=== PATIENT | male | born 1980 | race Caucasian/White ===

== ENCOUNTER 2017-04-06 17:33 | Inpatient (IN) | payer MEDICAID ==
[2017-04-06] MEDS ORDERED: NS 1,000 ML IV ONE ×2 (18:04→18:10)
[2017-04-06] MEDS ORDERED: IPRATROPIUM/ALBUTEROL 3 ML DEYVIAL IH ONE (18:10)
[2017-04-06] MEDS ORDERED: ONDANSETRON 4 MG/2 ML VIAL IVP ONE (18:10)
[2017-04-06] MEDS ORDERED: PROMETHAZINE HCL 25 MG/ML INJ IVP ONE (18:10)
--- NOTE | 2017-04-06 18:12 | EDPHY ---
General - History Smoking Status: Never smoked Narrative: CHIEF COMPLAINT: Fever, cough, chest pain, vomiting, diarrhea HISTORY OF PRESENT ILLNESS: Patient presents with complaints of fever, cough, right-sided painful cough, nausea, vomiting, diarrhea. Symptoms started on Wednesday. They have been persistent and worsening. No neck pain or stiffness. No headache. No abdominal pain but he does have multiple episodes of vomiting and diarrhea per day. He has no rashes or lesions. He also has body aches, joint pains, malaise. Occasional sore throat. He has attempted [id number] medications and his prescribed Percocet with no improvement. Currently resides at the [facility] in the [facility]. Patient went to urgent care last night with no formal diagnosis. No other associated complaints or modifying factors. REVIEW OF SYSTEMS: Ten systems reviewed and are negative unless otherwise noted in the HPI PCP: Dr. Harrison SPECIALISTS: None PAST MEDICAL HISTORY: Hypertension, previous alcohol abuse PAST SURGICAL HISTORY: No recent surgery SOCIAL HISTORY: Daily smoker. Sober from alcohol for 5 months. No drug use. 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 No meningeal signs. Respiratory: Mild rhonchi and scattered wheezing. Right-sided consolidation. No retractions or distress. Cardiovascular: Tachycardic rate. Regular rhythm. No murmur. Gastrointestinal: Abdomen is soft and nontender. No tympany rigidity Back: non-tender, no bony abnormalities Neurological: A&O, nonfocal, normal gait Skin: Warm and dry, no rash no petechiae or purpura Extremities: Nontender, no pedal edema Psychiatric: Mood and affect normal DIFFERENTIAL DIAGNOSES: Including but not limited to influenza, bronchitis, pneumonia, viral syndrome, gastroenteritis MDM: 6:10 p.m. Flu-like symptoms since Wednesday. Vomiting and diarrhea with stated dehydration. He is tachycardic and febrile. He is not tachypneic or hypoxemic. He is not hypotensive. He does have a history examination that suggest influenza greater than pneumonia. I have ordered laboratory studies, 2 L IV fluid, nausea medicine, DuoNeb treatment and chest x-ray. He is in no acute distress and does not require supplemental oxygen at this time. 6:35 p.m. Initial evaluation the patient pointed more toward influenza as a likely etiology. At this time I have reviewed his chest x-ray which suggests right- sided middle lobe pneumonia. At this point I have ordered blood cultures and lactic acid. I will also notified Dr. Lance as he does not meet SIRS criteria with likely sepsis from pneumonia. 7:00 p.m. Patient does meet criteria for sepsis but not severe sepsis or septic shock. Levaquin has been ordered. He is receiving IV fluid resuscitation. He is not hypoxemic. He is in no acute distress. 7:30 p.m. Patient re-evaluated. Laboratory studies revealed leukocytosis and confirm pneumonia on chest x-ray. Lactic acid is negative. Levaquin infusing. 8:05 p.m. Patient has been admitted to Dr. montoya. He is admitted in stable condition. IV fluid infusing. Levaquin infusing. Heart rate is improving. He continues to complain of pain, he does have chronic pain from spinal stenosis. I have ordered IV morphine for him. No acute distress. SUPERVISION: Patient was evaluated and examined in conjunction with my secondary supervising physician as documented. We have both examined the patient. (René Sousa) Medical Decision Making: Independent physician evaluation I evaluated and participated in the management of the patient. I also evaluated the patient independently. My co-signature indicates that I have reviewed this chart and I agree with the findings and plan of care as documented. My personal H&P findings include: The patient presents to the ED with fever, cough, congestion and right posterior chest pain. His symptoms began on Wednesday. The patient is a recovering alcoholic and has been sober for 5 months. He denies significant past medical history aside from hypertension. The patient reports associated symptoms of generalized malaise and fatigue. Physical exam General Appearance: Alert, appears fatigued Eyes: Pupils equal and round no pallor or injection ENT, Mouth: Mucous membranes moist Respiratory: Rhonchorous breath sounds right lung base Cardiovascular: Tachycardic Gastrointestinal: Abdomen is soft and nontender, no masses, bowel sounds normal Neurological: A&O, normal motor function, normal sensory exam, normal cranial nerves Skin: Warm and dry, no rashes Musculoskeletal: Neck is supple nontender Extremities: symmetrical, full range of motion ED course: The patient presents to the ED with fever, cough and congestion. The patient is noted to have leukocytosis and tachycardia. His chest x-ray shows a dense right lower lobe pneumonia. The patient had blood cultures x2 obtained. The patient does have SIRS criteria and sepsis. He does not have severe sepsis or septic shock. The patient received IV fluid rehydration. The patient is started on IV Levaquin. Consultation is made with the hospitalist service. He will be admitted by Dr. Cassidy Montoya this evening. (Tan Lance) - Diagnostics Imaging Results: Imaging Impressions Chest X-Ray 04/06/17 18:10 Impression: Dense right middle and lower lobe consolidation consistent with pneumonia. Radiographic follow up is recommended to resolution. - Objective Vital Signs: Initial Vital Signs Temperature (C) 102.2 F H 04/06/17 17:38 Heart Rate 126 H 04/06/17 17:38 Respiratory Rate 20 04/06/17 17:38 Blood Pressure 106/68 04/06/17 17:38 O2 Sat (%) 93 04/06/17 17:38 O2 Delivery Mode Nasal Cannula O2 (L/minute) 2 Allergies/Adverse Reactions: No Known Allergies Allergy (Unverified 04/06/17 17:37) Home Medications: Medication Instructions Recorded Ibuprofen [Motrin (*)] 800 mg PO TID 04/06/17 Lisinopril/Hydrochlorothiazide 1 each PO DAILY 04/06/17 [Zestoretic 20-12.5 mg Tablet] oxyCODONE/APAP 5/325 [Percocet 1 tab PO TID 04/06/17 5/325 (*)] Laboratory Results: Laboratory Results 04/06/17 18:10 04/06/17 18:10 04/06/17 04/06/17 04/06/17 19:00 18:10 18:10 WBC RBC Hgb Hct MCV MCH MCHC RDW Plt Count MPV Neut % (Auto) Lymph % (Auto) [place] % (Auto) Eos % (Auto) Baso % (Auto) Nucleat RBC Rel Count Absolute Neuts (auto) Absolute Lymphs (auto) Absolute Monos (auto) Absolute Eos (auto) Absolute Basos (auto) Absolute Nucleated RBC Immature Gran % Seg Neutrophils % Band Neutrophils % Immature Gran # Absolute Seg Neuts Absolute Band Neuts RBC/WBC/PLT Morphology Platelet Estimate PT INR APTT VBG Lactic Acid 1.5 mmol/L mmol/L (0.7-2.1) Sodium Potassium Chloride Carbon Dioxide Anion Gap BUN Creatinine Estimated GFR Glucose Calcium Total Bilirubin 1.0 mg/dL mg/dL (0.1-1.4) Conjugated Bilirubin Unconjugated Bilirubin AST ALT Alkaline Phosphatase Total Protein Albumin Lipase Procalcitonin Pending Nasal Influenza A PCR Nasal Influenza B PCR 04/06/17 04/06/17 04/06/17 18:10 18:10 18:10 WBC RBC Hgb Hct MCV MCH MCHC RDW Plt Count MPV Neut % (Auto) Lymph % (Auto) [place] % (Auto) Eos % (Auto) Baso % (Auto) Nucleat RBC Rel Count Absolute Neuts (auto) Absolute Lymphs (auto) Absolute Monos (auto) Absolute Eos (auto) Absolute Basos (auto) Absolute Nucleated RBC Immature Gran % Seg Neutrophils % Band Neutrophils % Immature Gran # Absolute Seg Neuts Absolute Band Neuts RBC/WBC/PLT Morphology Platelet Estimate PT 15.4 SEC H SEC (12.0-15.0) INR 1.20 H (0.83-1.16) APTT 40.9 SEC H SEC (23.0-38.0) VBG Lactic Acid Sodium 133 mEq/L L mEq/L (135-145) Potassium 4.1 mEq/L mEq/L (3.5-5.2) Chloride 96 mEq/L L mEq/L (97-110) Carbon Dioxide 21 mEq/l L mEq/l (22-31) Anion Gap 16 mEq/L mEq/L (8-16) BUN 37 mg/dL H mg/dL (7-23) Creatinine 1.1 mg/dL mg/dL (0.7-1.3) Estimated GFR > 60 Glucose 125 mg/dL H mg/dL (70-100) Calcium 9.1 mg/dL mg/dL (8.5-10.4) Total Bilirubin 1.0 mg/dL mg/dL (0.1-1.4) Conjugated Bilirubin 0.5 mg/dL mg/dL (0.0-0.5) Unconjugated Bilirubin 0.5 mg/dL mg/dL (0.0-1.1) AST 73 IU/L H IU/L (17-59) ALT 110 IU/L H IU/L (21-72) Alkaline Phosphatase 244 IU/L H IU/L (38-126) Total Protein 5.7 g/dL L g/dL (6.3-8.2) Albumin 3.3 g/dL L g/dL (3.5-5.0) Lipase < 10 IU/L L IU/L (23-300) Procalcitonin Nasal Influenza A PCR NEGATIVE FOR FLU A (NEGATIVE) Nasal Influenza B PCR NEGATIVE FOR FLU B (NEGATIVE) 04/06/17 18:10 WBC 17.51 10^3/uL H 10^3/uL (3.80-9.50) RBC 4.22 10^6/uL L 10^6/uL (4.40-6.38) Hgb 13.4 g/dL L g/dL (13.7-17.5) Hct 37.4 % L % (40.0-51.0) MCV 88.6 fL fL (81.5-99.8) MCH 31.8 pg pg (27.9-34.1) MCHC 35.8 g/dL g/dL (32.4-36.7) RDW 13.0 % % (11.5-15.2) Plt Count 187 10^3/uL 10^3/uL (150-400) MPV 9.6 fL fL (8.7-11.7) Neut % (Auto) Not Reported Lymph % (Auto) Not Reported [place] % (Auto) Not Reported Eos % (Auto) Not Reported Baso % (Auto) Not Reported Nucleat RBC Rel Count 0.0 % % (0.0-0.2) Absolute Neuts (auto) Not Reported Absolute Lymphs (auto) Not Reported Absolute Monos (auto) Not Reported Absolute Eos (auto) Not Reported Absolute Basos (auto) Not Reported Absolute Nucleated RBC 0.00 10^3/uL 10^3/uL (0-0.01) Immature Gran % Not Reported Seg Neutrophils % 81 % % Band Neutrophils % 19 % % Immature Gran # Not Reported Absolute Seg Neuts 14.18 10^/uL H 10^/uL (1.70-6.50) Absolute Band Neuts 3.33 10^3/uL H 10^3/uL (0.00-0.70) RBC/WBC/PLT Morphology NORMAL (NORMAL) Platelet Estimate ADEQUATE (ADEQ) PT INR APTT VBG Lactic Acid Sodium Potassium Chloride Carbon Dioxide Anion Gap BUN Creatinine Estimated GFR Glucose Calcium Total Bilirubin Conjugated Bilirubin Unconjugated Bilirubin AST ALT Alkaline Phosphatase Total Protein Albumin Lipase Procalcitonin Nasal Influenza A PCR Nasal Influenza B PCR Medications Given: Discontinued Medications Albuterol/Ipratropium (Duoneb) 3 ml IH EDNOW ONE Stop: 04/06/17 18:11 Last Admin: 04/06/17 18:33 Dose: 3 ml Sodium Chloride (Ns) 1,000 mls @ 0 mls/hr IV EDNOW ONE; Wide Open PRN Reason: Protocol Stop: 04/06/17 18:05 Last Admin: 04/06/17 18:31 Dose: 1,000 mls Sodium Chloride (Ns) 1,000 mls @ 0 mls/hr IV EDNOW ONE; Wide Open PRN Reason: Protocol Stop: 04/06/17 18:11 Last Admin: 04/06/17 18:32 Dose: 1,000 mls Levofloxacin/Dextrose (Levaquin 750 Mg (Premix)) 150 mls @ 100 mls/hr IV EDNOW ONE PRN Reason: Protocol Stop: 04/06/17 20:18 Last Admin: 04/06/17 19:31 Dose: 150 mls Ibuprofen (Motrin) 600 mg PO EDNOW ONE Stop: 04/06/17 18:14 Last Admin: 04/06/17 18:32 Dose: 600 mg Ondansetron HCl (Zofran) 4 mg IVP EDNOW ONE Stop: 04/06/17 18:11 Last Admin: 04/06/17 18:32 Dose: 4 mg Promethazine HCl (Phenergan) 12.5 mg IVP ONCE ONE Stop: 04/06/17 18:11 Last Admin: 04/06/17 18:32 Dose: 12.5 mg Departure - Departure Disposition: [place] Inpatient Acute Clinical Impression: Pneumonia Qualifiers: Pneumonia type: due to unspecified organism Laterality: right Lung location: lower lobe of lung Qualified Code(s): J18.1 - Lobar pneumonia, unspecified organism Sepsis Qualifiers: Sepsis type: sepsis due to unspecified organism Qualified Code(s): A41.9 - Sepsis, unspecified organism Condition: Fair Referrals: MARIO HARRISON [Other] - As per Instructions
[2017-04-06] MEDS ORDERED: IBUPROFEN 600 MG TAB PO ONE (18:13)
[2017-04-06 18:26] LABS: PLATELET COUNT 187 10^3/uL (150-400)
[2017-04-06 20:28] LABS: INR 1.2 (0.83-1.16); PROTIME(PATIENT) 15.4 SEC (12.0-15.0)
[2017-04-06] MEDS ORDERED: PROMETHAZINE HCL 25 MG/ML INJ IVP PRN (21:46)
[2017-04-06] MEDS ORDERED: ONDANSETRON 4 MG/2 ML VIAL IVP PRN (21:46)
[2017-04-06] MEDS ORDERED: ACETAMINOPHEN 325 MG TAB PO PRN (21:46)
[2017-04-06] MEDS ORDERED: oxyCODONE IR 5 MG TAB PO PRN (21:46)
[2017-04-06] MEDS: OXYCODONE/APAP 5/325 TAB PO SCH (22:04)
[2017-04-06] MEDS: NS 1,000 ML IV SCH (22:15)
--- NOTE | 2017-04-06 22:24 | GHP ---
[f rep st] HISTORY AND PHYSICAL DATE OF ADMISSION: 04/06/2017 CHIEF COMPLAINT: Pleuritic chest pain. HISTORY: The patient is a 36-year-old male, who has been having right-sided chest pain for the last 4 days. It is pleuritic and severe with deep inspiration. He looks extraordinarily uncomfortable. He has also developed fever for the last 2 days and a productive cough. He has been having nausea, v omiting, and diarrhea. He feels achy and myalgias all over. He lives at the [facility] as he is a recoveri ng alcoholic and feels he likely acquired respiratory infection there. He has been sober from [employer] for the last 5-1/2 months. PAST MEDICAL HISTORY: 1. Hypertension. 2. Previous alcoholism. 3. Spinal stenosis on chronic narcotics, 3 Percocet per day. MEDICATIONS: Please see computer record full detailed list. ALLERGIES: No known drug allergies. SOCIAL HISTORY: He smokes. He has been sober for 5-1/2 months. He lives at the [facility]. 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 REVIEW OF SYSTEMS: Complete review of systems obtained. Review of systems negative regarding consti tutional, HEENT, GI, pulmonary, cardiovascular, , hematology, skin, musculoskeletal, endocrine, and psych, except for positives and negatives as in HPI. FAMILY HISTORY: Reviewed, noncontributory to presenting complaint. PHYSICAL EXAMINATION: GENERAL: Well-developed, well-nourished male, in no acute distress. VITAL SI GNS: Temperature 38.1, pulse 115, blood pressure 108/63, saturating 93% on 2 L. EYE: Normal conjun ctivae. Pupils react to light. ENT: Normal ears, nose. Hearing intact. Normal lips and teeth. O ropharynx moist. NECK: Trachea midline. No thyromegaly. CHEST: Normal effort. LUNGS: Right bas ilar rales. No wheeze or rhonchi. CARDIOVASCULAR: Regular rhythm. No murmur. No extremity edema. ABDOMEN: Soft, nontender. No hepatosplenomegaly. SKIN: Warm, dry, intact. No rash. MUSCULOSKE LETAL: No cyanosis or clubbing. Strength 5/5 upper and lower extremities. NEUROLOGIC: Cranial ner ves intact. Normal sensation to light touch. PSYCH: Alert AND oriented x3. Normal affect. Normal judgment and insight. Normal memory. LABORATORY DATA: White count 17.5, hematocrit 37.4, platelets 187. Sodium 133, potassium 4.1, chlor sae 96, bicarb 21, BUN 37, creatinine 1.1, glucose 125, AST 73, ALT 110, alkaline phosphatase 244, al bumin 3.3, procalcitonin 5.88. Influenza negative. Lactate 1.5. INR is 1.2. Chest x-ray, reviewed by me. My personal interpretation is dense right middle lobe and right lower lobe consolidation. I have spoken with the emergency room provider René Sousa regarding emergency room course. They sta rted him on IV Levaquin. ASSESSMENT/PLAN: 1. Pneumonia. Patient appears quite toxic and uncomfortable at this time. We will continue IV Leva murphy and anticipated prolonged hospitalization. His chest x-ray is quite significant. 2. Sepsis as evidenced by fever, tachycardia, and leukocytosis. We will continue IV fluid hydration . 3. Increased liver function tests. This is likely due to his sepsis. We will check an abdominal ul trasound and a viral hepatitis panel. 4. Spinal stenosis with continuous narcotic dependency. Continue scheduled Percocet. 5. Hypertension. We will hold his usual lisinopril and hydrochlorothiazide while monitoring blood p ressures closely. 6. Tobacco dependence. Continue patch. CODE STATUS: Full. ADMISSION STATUS: Will admit to inpatient as given his severity of illness on presentation. Anticip ate greater than 2 midnights will be required. DEEP VENOUS THROMBOSIS PROPHYLAXIS: He is moderate risk. Will place on subcu Lovenox. /[id number]/MODL
[2017-04-06] MEDS: BENZONATATE 100 MG CAP PO PRN (22:32)
[2017-04-06] MEDS: GUAIFENESIN/DM 10 ML UDCUP PO PRN (22:33)
[2017-04-06] MEDS: HYDROmorphONE/DILAUDID 1 MG/ML INJ IVP PRN (23:40)
[2017-04-07] MEDS: HYDROmorphONE/DILAUDID 1 MG/ML INJ IVP PRN ×3 (04:44→18:06)
[2017-04-07] MEDS: GUAIFENESIN/DM 10 ML UDCUP PO PRN ×2 (04:46→11:56)
[2017-04-07 05:19] LABS: PLATELET COUNT 181 10^3/uL (150-400)
[2017-04-07] MEDS: BENZONATATE 100 MG CAP PO PRN (06:11)
[2017-04-07 06:25] LABS: HEPATITIS B SURFACE ANTIGEN NEGATIVE (NEGATIVE)
[2017-04-07 06:31] LABS: HEPATITIS A ANTIBODY IGM (BCH) NEGATIVE (NEGATIVE); HEPATITIS B CORE AB IGM NEGATIVE (NEGATIVE)
[2017-04-07 06:42] LABS: HEPATITIS C ANTIBODY TOTAL NEGATIVE (NEGATIVE); HIV TYPE 1 AND 2 NEGATIVE (NEGATIVE)
--- NOTE | 2017-04-07 08:19 | HOSPPROG ---
Hospitalist Progress Note Assessment/Plan: DIAGNOSES: -pneumococcal pneumonia and bacteremia -acute sepsis -liver injury with elevated transaminases due to above -prerenal azotemia -acute diffuse pain but primarily pleuritic chest pain, with chronic back pain on chronic prescribed narcotics average 3 Percocet tablets daily at home -acute hypoxemia At this point there are still some mild some findings of sepsis, and he has quite a bit of pleuritic pain as well as diffuse myalgias and arthralgias. He remains fairly toxic, extremely weak, short of breath No appetite at all quite a bit of nausea and unable to eat or drink PLANS: -continue current antibiotics -continue IV fluid resuscitation -will add scheduled antiemetics, scheduled antitussives, and have added prednisone as a anti-inflammatory for his chest pain and also as an antiemetic -encouraged him to be up in chair as much as possible SUBJECTIVE: Still feels extremely sick, still with quite a bit of uncontrolled pain both his pleuritic chest pain as well as diffuse myalgias and arthralgias Still short of breath Despite multiple antiemetic doses still fairly nauseous, no appetite, not eating or drinking anything, no abdominal pain OBJECTIVE Vitals reviewed: Remains mildly hypotensive despite being off his usual antihypertensive medicines, pulse remains in 90s, current temperature is normal Exam: alert oriented looks quite ill, weak, fatigued skin warm dry color ok resps looks very uncomfortable due to his pleuritic pain lungs loud rhonchi and rales right lower lobe heart regular abd soft nondistended nontender, bowel sounds present limbs warm, no edema iv site ok Laboratory data: Some mild decrease in liver transaminases White blood cell count still elevated at 14,000, some mild anemia normocytic has developed Microbiology data: Strep pneumococcus growing from all this blood culture bottles No identified organisms on his respiratory pathogen panel in his flu swab was negative Objective: Vital Signs Temp Pulse Resp BP Pulse Ox 36.9 C 91 18 92/56 L 96 04/07/17 04:00 04/07/17 04:00 04/07/17 04:00 04/07/17 04:00 04/07/17 04:00 Microbiology 04/07/17 05:05 - Final Sputum, Expectorated Sputum Culture - Final 04/06/17 22:35 Respiratory Panel (PCR) - Final Nasal, Sinus - Swab No Organism Detected Laboratory Results 04/07/17 04:37 04/07/17 04:37 04/06/17 04/07/17 04/08/17 06:59 06:59 06:59 Intake Total 2500 Output Total 600 Balance 1900 PT 15.4 SEC (12.0-15.0) H 04/06/17 18:10 INR 1.20 (0.83-1.16) H 04/06/17 18:10 - Time Spent With Patient Time Spent with Patient: greater than 35 minutes Time Spent with Patient: Greater than 35 minutes spent on this patients care, greater than 50% of time spent counseling, educating, and coordinating care regarding the above mentioned plan. ICD10 Worksheet Patient Problems: Problems Problem Status Onset Pneumonia Acute Sepsis Acute
[2017-04-07] MEDS: NS 1,000 ML IV SCH (09:04)
[2017-04-07] MEDS: ENOXAPARIN 40 MG/0.4 ML SYR SC SCH (09:05)
[2017-04-07] MEDS: IBUPROFEN 800 MG TAB PO SCH ×3 (09:05→21:24)
[2017-04-07] MEDS: OXYCODONE/APAP 5/325 TAB PO SCH ×3 (09:05→21:24)
[2017-04-07] MEDS: predniSONE 20 MG TAB PO SCH (09:05)
[2017-04-07] MEDS: NICOTINE 14 MG/24 HR PATCH TD SCH (09:05)
[2017-04-07] MEDS: ONDANSETRON 4 MG/2 ML VIAL IVP SCH ×4 (09:05→23:21)
--- NOTE | 2017-04-07 09:29 | ASMTCASEMG ---
Living Arrangements What is your living Answers: Alone arrangement? Who do you live with? Type Of Residence What kind of residence do Answers: House you live in? Discharge Plan Comments Coordination Status Comments Notes: Pt is a 36 y/o man admitted for pneumonia. PT has been ordered and awaiting recommendations. Pt will most likely d/c independent when medically stable. CM available for d/c needs. Plan: Independent Date Signed: 04/07/2017 09:28 AM Electronically Signed By:LESLI Salcedo
[2017-04-07] MEDS ORDERED: PNEUMOCOCCAL 0.5ML VACCINE VIAL IM ONE (11:22)
[2017-04-07] MEDS: PROMETHAZINE HCL 25 MG/ML INJ IVP SCH ×3 (11:56→23:13)
--- NOTE | 2017-04-07 14:42 | PDMN ---
Medical Necessity Medical necessity: Pt meets IP criteria per MD; est los >2 mn for eval/tx of sepsis, pneumonia & N/V/D; pt severely ill, admit for further workup/monitoring , IV abx, IVFs, IV pain meds/antiemetics & therapies; hx htn, spinal stenosis & previous alcoholism; per H&P & order 04/06/17
[2017-04-07] MEDS: BENZONATATE 100 MG CAP PO SCH ×2 (16:06→21:25)
[2017-04-07] MEDS ORDERED: NALOXONE HCL 0.4 MG/ML INJ IVP PRN (18:21)
[2017-04-07] MEDS: traZODone 50 MG TAB PO SCH (21:25)
[2017-04-07] MEDS: MELATONIN 3 MG TAB PO SCH (21:25)
[2017-04-08] MEDS: ONDANSETRON 4 MG/2 ML VIAL IVP SCH ×6 (05:45→23:31)
[2017-04-08] MEDS: predniSONE 20 MG TAB PO SCH (09:05)
[2017-04-08] MEDS: BENZONATATE 100 MG CAP PO SCH ×3 (09:06→21:26)
[2017-04-08] MEDS: NICOTINE 14 MG/24 HR PATCH TD SCH (09:07)
[2017-04-08] MEDS: ENOXAPARIN 40 MG/0.4 ML SYR SC SCH (09:07)
[2017-04-08] MEDS: OXYCODONE/APAP 5/325 TAB PO SCH ×3 (09:08→21:26)
[2017-04-08] MEDS: PROMETHAZINE HCL 25 MG/ML INJ IVP SCH ×4 (09:08→17:53)
[2017-04-08] MEDS: IBUPROFEN 800 MG TAB PO SCH ×4 (09:08→21:26)
--- NOTE | 2017-04-08 12:39 | HOSPPROG ---
Hospitalist Progress Note Assessment/Plan: DIAGNOSES: -pneumococcal pneumonia and bacteremia, sensitivities still pending -acute sepsis, appears now to have resolved -liver injury with elevated transaminases due to above -prerenal azotemia -acute diffuse pain but primarily pleuritic chest pain, with history of chronic back pain on chronic prescribed narcotics (average 3 Percocet tablets daily at home) -acute hypoxemia At this point there are still some mild some findings of sepsis, and he has quite a bit of pleuritic pain as well as diffuse myalgias and arthralgias. He remains fairly toxic, extremely weak, short of breath No appetite at all quite a bit of nausea and unable to eat or drink PLANS: -continue current antibiotics -continue IV fluid resuscitation -continue scheduled antiemetics, scheduled antitussives, NSAID, as well as prednisone which we can probably stop in 1-2 days -with his concern about using narcotic medicines, I reviewed with him that given his degree of pain the use of narcotic here for a couple of days is very unlikely to lead to any kind of habit or other problems, as long as we can taper him off and sent him home without oral medicines. However as he is the only 1 who can feel the pain it is up to him to decide whether he can tolerate going without pain medicines and he should use what pain medicine he needs to get by and no more. We discussed this and I answered several questions he had around. -encouraged him to begin ambulation as much as possible today SUBJECTIVE: Slightly less pain and nausea but still needing medication for both new less short of breath and less cough, did get some sleep finally last night for the 1st time in 4 days No other new symptoms The patient is expressing concern about taking narcotics here worried about becoming addicted to narcotics OBJECTIVE Vitals reviewed: Afebrile, blood pressure pulse of normalized nicely Exam: alert oriented still looks fairly visibly ill and uncomfortable skin warm dry color ok resps not labored but still uncomfortable due to pleuritic pain lungs less rhonchi and rales right lower lobe heart regular abd soft nondistended nontender, bowel sounds present limbs warm, no edema iv site ok Microbiology data: Strep pneumococcus growing from all this blood culture bottles, however we do not have any antibiotic sensitivities yet No identified organisms on his respiratory pathogen panel in his flu swab was negative Objective: Vital Signs Temp Pulse Resp BP Pulse Ox 36.9 C 73 18 127/88 H 96 04/08/17 11:31 04/08/17 11:31 04/08/17 11:31 04/08/17 12:22 04/08/17 11:31 Microbiology 04/07/17 02:10 Gastrointestinal Tract Panel (PCR) - Final Stool No Organism Detected 04/07/17 05:05 - Final Sputum, Expectorated Sputum Culture - Final 04/06/17 22:35 Respiratory Panel (PCR) - Final Nasal, Sinus - Swab No Organism Detected Laboratory Results 04/07/17 04:37 04/07/17 04:37 04/07/17 04/08/17 04/09/17 06:59 06:59 06:59 Intake Total 500 1005 Output Total 600 1675 Balance -100 -670 PT 15.4 SEC (12.0-15.0) H 04/06/17 18:10 INR 1.20 (0.83-1.16) H 04/06/17 18:10 - Time Spent With Patient Time Spent with Patient: greater than 35 minutes Time Spent with Patient: Greater than 35 minutes spent on this patients care, greater than 50% of time spent counseling, educating, and coordinating care regarding the above mentioned plan. ICD10 Worksheet Patient Problems: Problems Problem Status Onset Pneumonia Acute Sepsis Acute
[2017-04-08] MEDS: GUAIFENESIN/DM 10 ML UDCUP PO PRN ×2 (13:50→18:04)
[2017-04-08] MEDS: HYDROmorphONE/DILAUDID 6 MG/30 ML PCA IV PRN (15:24)
[2017-04-08] MEDS: NS 1,000 ML IV SCH (15:32)
[2017-04-08] MEDS: MELATONIN 3 MG TAB PO SCH (21:26)
[2017-04-08] MEDS: traZODone 50 MG TAB PO SCH (21:26)
[2017-04-09] MEDS: PROMETHAZINE HCL 25 MG/ML INJ IVP SCH ×3 (00:19→10:48)
[2017-04-09] MEDS: HYDROmorphONE/DILAUDID 6 MG/30 ML PCA IV PRN (01:19)
[2017-04-09] MEDS: NS 1,000 ML IV SCH (01:35)
[2017-04-09] MEDS: ONDANSETRON 4 MG/2 ML VIAL IVP SCH ×3 (01:52→11:03)
[2017-04-09 08:39] VITALS: RESP 14
[2017-04-09] MEDS: predniSONE 20 MG TAB PO SCH (09:45)
[2017-04-09] MEDS: NICOTINE 14 MG/24 HR PATCH TD SCH (09:45)
[2017-04-09] MEDS: ENOXAPARIN 40 MG/0.4 ML SYR SC SCH (09:45)
[2017-04-09] MEDS: IBUPROFEN 800 MG TAB PO SCH (09:45)
--- NOTE | 2017-04-09 11:25 | HOSPPROG ---
Hospitalist Progress Note Assessment/Plan: Sepsis secondary to pneumococcal PNA - Sepsis physiology resolved. BCx's positive 2/2 bottles. Improving on Levaquin. -change to oral levaquin, will discussed DOT with ID -he is on room air -pain control: d/c dilaudid bench hand, use tylenol, ibuprofen, prn oxy Elevated LFT's - trending down, likely 2/2 etoh H/O etoh dependence - no e/o withdrawal, being treated at [facility] Hypertension - BP's ok off med, follow Full code Dispo - d/c to [facility] today or tomorrow Subjective: PT doing ok, started on [employer] last night for pain, which is better controlled today. Still coughing. Less chest pain, SOB. No fevers. Objective: Vital Signs Temp Pulse Resp BP Pulse Ox 36.9 C 54 L 14 136/95 H 94 04/09/17 10:00 04/09/17 10:00 04/09/17 10:00 04/09/17 10:00 04/09/17 10:00 Laboratory Results 04/07/17 04:37 04/07/17 04:37 04/08/17 04/09/17 04/10/17 05:59 05:59 05:59 Intake Total 1005 2448 Output Total 1675 Balance -670 2448 PT 15.4 SEC (12.0-15.0) H 04/06/17 18:10 INR 1.20 (0.83-1.16) H 04/06/17 18:10 - Physical Exam Constitutional: no apparent distress Eyes: PERRL Ears, Nose, Mouth, Throat: moist mucous membranes Cardiovascular: regular rate and rhythym Respiratory: no respiratory distress, inspiratory crackles Gastrointestinal: normoactive bowel sounds, soft, non-tender abdomen Skin: warm Musculoskeletal: full muscle strength Neurologic: AAOx3 Psychiatric: interacting appropriately ICD10 Worksheet Patient Problems: Problems Problem Status Onset Pneumonia Acute Sepsis Acute
[2017-04-09] MEDS ORDERED: IBUPROFEN 600 MG TAB PO SCH (11:30)
[2017-04-09 12:14] LABS: PLATELET COUNT 209 10^3/uL (150-400)
[2017-04-09 13:12] VITALS: BP 135/96; PULSE 53; TEMP 97.7; O2SAT 97
--- NOTE | 2017-04-09 14:29 | ASMTCMCOM ---
CM Note CM Note Notes: Spoke w/pt, he will return to the [facility] when medically stable. CM offered assistance with transportation but pt declined, stating that the [facility] would pick him up. He will notifiy CM is something changes. DC Plan: [facility] Date Signed: 04/09/2017 02:28 PM Electronically Signed By:Phyllis Duncan RN
--- NOTE | 2017-04-09 14:32 | ASMTLACE ---
JEANNEE Length of stay for Answers: 3 days current admission Acuity / Level of Answers: Yes Care: Did the patient have an inpatient admission? Comorbidities - select Answers: Opioid dependence all that apply / Chronic pain # of Emergency department Answers: 0 visits in the last 6 months Social determinants Answers: History of substance abuse (ETHO, street drugs, prescription drugs, etc.) Score: 13 Date Signed: 04/09/2017 02:32 PM Electronically Signed By:Phyllis Duncan RN
[2017-04-09] MEDS: BENZONATATE 100 MG CAP PO SCH (14:39)
[2017-04-09] MEDS: OXYCODONE/APAP 5/325 TAB PO SCH (14:39)
--- NOTE | 2017-04-09 15:55 | GDS ---
[f rep st] DISCHARGE SUMMARY DISCHARGE DIAGNOSES: 1. Sepsis secondary to pneumococcal pneumonia. 2. Pneumococcal bacteremia. 3. Elevated liver enzymes, likely secondary to alcohol, improving. 4. History of alcohol dependence. No evidence of withdrawal. 5. History of hypertension. Blood pressure stable. CONSULTANTS: None. IMAGING STUDIES AND PROCEDURES: Abdominal ultrasound showed mild hepatomegaly, minimal splenomegaly with a normal gallbladder and no cholelithiasis. HISTORY: For details, please see the history and physical dated April 06, 2017. The patient is a 36-year-old male with a history of alcohol dependence and hypertension, who presents to the emergency department with pleuritic chest pain, fever, and cough. His initial chest x-ray in the emergency de partment was consistent with a right lower lobe pneumonia, and he was admitted to the hospital for fu rther management. HOSPITAL COURSE: Patient was admitted to the med/surg unit. Blood cultures were drawn and were posi tive for streptococcal pneumonia in 2 of 2 bottles. He was treated with IV Levaquin. His sepsis phy siology resolved. His liver enzymes trended down. Sensitivities on his blood cultures reveal his or ganism is sensitive to Levaquin. I discussed the case with Infectious Disease and will plan to treat for a total of 2 weeks of therapy with oral Levaquin. On the day of discharge, the patient is satur ating 97% on room air with a respiratory rate of 14. He is relatively normotensive. His condition i s significantly improved. DISPOSITION: Patient is discharged to the [facility] in stable condition. DISCHARGE MEDICATIONS: Please see [facility] for completed outpatient medication list. New medications on discharge include: 1. Tessalon Perles 200 mg p.o. t.i.d., #30, no refills. 2. Robitussin DM 10 mL p.o. q.4 hours p.r.n. 3. Ibuprofen 600 mg p.o. t.i.d. 4. Levaquin 750 mg p.o. daily, #10, no refills, to complete a 14-day course. 5. Oxycodone IR 5-10 mg p.o. q.6 hours, #10, no refills. 6. Nicoderm 14 mg patch daily, #14, no refills. 7. Melatonin 3-6 mg p.o. h.s. p.r.n. He will continue all other outpatient medications as previously prescribed. FOLLOWUP: He should follow up with Dr. Chantell Harrison, primary care. /[id number]/MODL
--- NOTE | 2017-04-09 17:54 | ASDISCHSUM ---
Discharge Information Plan Status:Home with No Needs Medically Cleared to Leave: Discharge Date:04/09/2017 03:08 PM CM D/C Disposition:Home, Routine, Self-Care ADT D/C Disposition:Home, Routine, Self-Care Projected Discharge Date:04/09/2017 03:08 PM Transportation at D/C: Discharge Delay Reason: Follow-Up Date:04/09/2017 03:08 PM Discharge Slot: Final Diagnosis: Placement Information Patient Contact Information Contact Name:MARIA VICTORIA Relationship: Address:[address] [place] City:[facility] Phone: State/Zip Code:[place] [address] Email: Financial Information Financial Class: Primary Plan Desc:[employer]ICA[employer] FIRST [employer] [place] Primary Plan Number:[id number] Secondary Plan Desc: Secondary Plan Number: Assessment Information [facility] Initial CM Assessment Living Arrangements What is your living Answers: Alone arrangement? Who do you live with? Type Of Residence What kind of residence do Answers: House you live in? Discharge Plan Comments Coordination Status Comments Notes: Pt is a 36 y/o man admitted for pneumonia. PT has been ordered and awaiting recommendations. Pt will most likely d/c independent when medically stable. CM available for d/c needs. Plan: Independent Date Signed: 04/07/2017 09:28 AM Electronically Signed By:LESLI Salcedo [facility] CM Progress Note CM Note CM Note Notes: Spoke w/pt, he will return to the [facility] when medically stable. CM offered assistance with transportation but pt declined, stating that the [facility] would pick him up. He will notifiy CM is something changes. DC Plan: [facility] Date Signed: 04/09/2017 02:28 PM Electronically Signed By:Phyllis Duncan RN LACE LACE Length of stay for Answers: 3 days current admission Acuity / Level of Answers: Yes Care: Did the patient have an inpatient admission? Comorbidities - select Answers: Opioid dependence all that apply / Chronic pain # of Emergency department Answers: 0 visits in the last 6 months Social determinants Answers: History of substance abuse (ETHO, street drugs, prescription drugs, etc.) Score: 13 Date Signed: 04/09/2017 02:32 PM Electronically Signed By:Phyllis Duncan RN Intervention Information
== END 2017-04-09 15:08 | DRG 871 ==
LOC: INTOOBSV 19:58 → F3E 21:05 → OBSVTOIN 21:43
PROVIDERS: ADMIT Internal Medicine; ATTEND Hospitalist
DX: A40.3 Sepsis due to Streptococcus pneumoniae (principal); J13 Pneumonia due to Streptococcus pneumoniae; F10.21 Alcohol dependence, in remission; I10 Essential (primary) hypertension; Z23 Encounter for immunization
CPT/HCPCS: 96365; G0009; G0472; J1170; J1650; J1956; J2405; J2550; J7512

== ENCOUNTER 2017-04-11 06:58 | Inpatient (IN) | payer MEDICAID ==
--- NOTE | 2017-04-11 07:07 | EDPHY ---
H & P Stated Complaint: R side CP cough nausea since midnight, dcd pna 3 d ago Time Seen by Provider: 04/11/17 07:07 HPI/ROS: CHIEF COMPLAINT: Right-sided chest pain HISTORY OF PRESENT ILLNESS: The patient presents to the ED with complaints of right-sided chest pain. The patient was hospitalized 3 days with bacteremia and strep pneumoniae pneumonia 5 days ago. The patient was discharged home on oral Levaquin. He was also given a total of 10 Oxy IR. The patient does have a history of narcotic dependence and there was some discussion surrounding him coming off of narcotic medications quickly. The patient reports he has been taking those medications as prescribed and still has narcotic medicines. The patient complains of intense sharp right anterior costochondral pain. In reviewing his records this was present throughout his hospitalization. The patient has continued to take his Levaquin as prescribed. He is currently a resident at the [facility]. REVIEW OF SYSTEMS: A comprehensive 10 point review of systems is otherwise negative aside from elements mentioned in the history of present illness. Source: Patient - Personal History Current Tetanus/Diphtheria Vaccine: Unsure Current Tetanus Diphtheria and Acellular Pertussis (TDAP): Unsure - Medical/Surgical History Hx Asthma: No Hx Chronic Respiratory Disease: No Hx Diabetes: No Hx Cardiac Disease: No Hx Renal Disease: No Hx Cirrhosis: No Hx Alcoholism: Yes Hx HIV/AIDS: No Hx Splenectomy or Spleen Trauma: No Other PMH: etoh, high blood pressure - Social History Smoking Status: Former smoker - Physical Exam Exam: General Appearance: Alert, mild discomfort Eyes: Pupils equal and round no pallor or injection ENT, Mouth: Mucous membranes moist Respiratory: Tenderness to palpation right anterior costochondral area, mild rhonchorous breath sounds right lung base Cardiovascular: Regular rate and rhythm Gastrointestinal: Abdomen is soft and nontender, no masses, bowel sounds normal Neurological: A&O, normal motor function, normal sensory exam, normal cranial nerves Skin: Warm and dry, no rashes Musculoskeletal: Neck is supple nontender Extremities: symmetrical, full range of motion Constitutional: Initial Vital Signs Temperature (C) 36.7 C 04/11/17 07:04 Heart Rate 84 04/11/17 07:04 Respiratory Rate 20 04/11/17 07:04 Blood Pressure 141/83 H 04/11/17 07:04 O2 Sat (%) 95 04/11/17 07:04 O2 Delivery Mode Room Air Allergies/Adverse Reactions: No Known Allergies Allergy (Unverified 04/06/17 17:37) Home Medications: Medication Instructions Recorded Levaquin 04/11/17 Lidocaine 5% [Lidoderm 5% Patch 1 ea TD DAILY #12 patch 04/11/17 (*)] Lisinopril 04/11/17 Oxycodone HCl 04/11/17 oxyCODONE IR [Oxycodone Ir (*)] 5 - 10 mg PO Q6 PRN #30 tab 04/11/17 traZODone 04/11/17 Medical Decision Making - Diagnostics Imaging Results: Imaging Impressions Chest X-Ray 04/11/17 07:10 Impression: 1. Persistent dense consolidation/pneumonia right middle lobe and right lower lobe. Chest/Thorax CTA 04/11/17 08:21 Impression: 1. No evidence of pulmonary embolus using CT protocol. 2. Dense consolidation/pneumonia right middle lobe and right lower lobe with small right effusion. 3. Focal small areas in pneumonitis inferior aspect of the right and left upper lobes anteromedially. 4. The spleen may be mildly enlarged. Findings discussed with Tan Lance at 9:28 hour, 04/11/2017. Chest x-ray PA lateral: Images reviewed by myself, slight improvement in prior right lower lobe pneumonia. ED Course/Re-evaluation: The patient is afebrile, hemodynamically stable and presents to the ED with chronic severe chest wall pain. The patient's chest x-ray demonstrates slight improvement in his prior right lower lobe pneumonia. The patient was given a Lidoderm patch, Tylenol and ibuprofen. The patient's vital signs are stable. He is afebrile. I re-evaluated the patient at 8:20 a.m.. He reports his pain is uncontrolled, the patient had an IV established. Laboratory studies have been ordered. A CT pulmonary angiogram has been ordered for further characterization of the acute worsening right-sided chest pain. CT pulmonary angiogram demonstrates no evidence of an empyema, pulmonary embolism, obvious fracture pneumothorax. The patient is noted to have a significant leukocytosis of uncertain significance. Given the fact that he is currently staying at the [facility] and appears to be failing outpatient therapy I feel he needs to be readmitted to the hospital. Consultation is made with the hospitalist service. The patient did receive an additional IV dose of Levaquin in the emergency department. Differential Diagnosis: Differential diagnosis considered includes worsening pneumonia, rib fracture, pneumothorax, empyema - Data Points Laboratory Results: Laboratory Results 04/11/17 08:20 04/11/17 08:20 04/11/17 04/11/17 08:20 08:20 WBC 22.77 10^3/uL H D 10^3/uL (3.80-9.50) RBC 4.28 10^6/uL L 10^6/uL (4.40-6.38) Hgb 13.6 g/dL L g/dL (13.7-17.5) Hct 38.1 % L % (40.0-51.0) MCV 89.0 fL fL (81.5-99.8) MCH 31.8 pg pg (27.9-34.1) MCHC 35.7 g/dL g/dL (32.4-36.7) RDW 13.0 % % (11.5-15.2) Plt Count 262 10^3/uL D 10^3/uL (150-400) MPV 8.6 fL L fL (8.7-11.7) Neut % (Auto) Not Reported Lymph % (Auto) Not Reported [place] % (Auto) Not Reported Eos % (Auto) Not Reported Baso % (Auto) Not Reported Nucleat RBC Rel Count 0.0 % % (0.0-0.2) Absolute Neuts (auto) Not Reported Absolute Lymphs (auto) Not Reported Absolute Monos (auto) Not Reported Absolute Eos (auto) Not Reported Absolute Basos (auto) Not Reported Absolute Nucleated RBC 0.00 10^3/uL 10^3/uL (0-0.01) Immature Gran % Not Reported Seg Neutrophils % 85 % % Lymphocytes % 7 % % Monocytes % 4 % % Eosinophils % 2 % % Metamyelocytes % 2 % % Immature Gran # Not Reported Absolute Seg Neuts 19.35 10^/uL H 10^/uL (1.70-6.50) Absolute Lymphocytes 1.59 10^3/uL 10^3/uL (1.00-3.00) Absolute Monocytes 0.91 10^3/uL H 10^3/uL (0.30-0.80) Absolute Eosinophils 0.46 10^3/uL H 10^3/uL (0.03-0.40) Absolute Metamyelocyte 0.46 10^3/mL H 10^3/mL (0.00-0.00) Platelet Estimate ADEQUATE (ADEQ) Polychromasia 1+ H Sodium 138 mEq/L mEq/L (135-145) Potassium 3.8 mEq/L mEq/L (3.5-5.2) Chloride 101 mEq/L mEq/L (97-110) Carbon Dioxide 28 mEq/l mEq/l (22-31) Anion Gap 9 mEq/L mEq/L (8-16) BUN 14 mg/dL mg/dL (7-23) Creatinine 0.7 mg/dL mg/dL (0.7-1.3) Estimated GFR > 60 Glucose 96 mg/dL mg/dL (70-100) Calcium 8.7 mg/dL mg/dL (8.5-10.4) Total Bilirubin 1.2 mg/dL mg/dL (0.1-1.4) Conjugated Bilirubin 0.3 mg/dL mg/dL (0.0-0.5) Unconjugated Bilirubin 0.9 mg/dL mg/dL (0.0-1.1) AST 30 IU/L IU/L (17-59) ALT 70 IU/L IU/L (21-72) Alkaline Phosphatase 191 IU/L H IU/L (38-126) Total Protein 5.6 g/dL L g/dL (6.3-8.2) Albumin 2.9 g/dL L g/dL (3.5-5.0) Medications Given: Discontinued Medications Acetaminophen (Tylenol) 1,000 mg PO EDNOW ONE Stop: 04/11/17 07:18 Last Admin: 04/11/17 07:32 Dose: 1,000 mg Ibuprofen (Motrin) 600 mg PO EDNOW ONE Stop: 04/11/17 07:18 Last Admin: 04/11/17 07:32 Dose: 600 mg Lidocaine (Lidoderm 5%) 1 ea TD EDNOW ONE Stop: 04/11/17 07:18 Last Admin: 04/11/17 07:33 Dose: 1 ea Morphine Sulfate (Morphine) 4 mg IVP EDNOW ONE Stop: 04/11/17 08:23 Last Admin: 04/11/17 08:35 Dose: 4 mg Departure - Departure Disposition: [facility] Acute Clinical Impression: Pneumonia Condition: Good Prescriptions: Lidocaine 5% [Lidoderm 5% Patch (*)] 1 ea TD DAILY #12 patch oxyCODONE IR [Oxycodone Ir (*)] 5 - 10 mg PO Q6 PRN #30 tab PRN Reason: for pain
[2017-04-11] MEDS ORDERED: LIDOCAINE 5% 1 EA PATCH TD ONE (07:17)
[2017-04-11] MEDS ORDERED: ACETAMINOPHEN 500 MG TAB PO ONE (07:17)
[2017-04-11] MEDS ORDERED: IBUPROFEN 600 MG TAB PO ONE (07:17)
[2017-04-11 08:35] LABS: PLATELET COUNT 262 10^3/uL (150-400)
[2017-04-11] MEDS ORDERED: IOPAMIDOL (ISOVUE 370) 100 ML BTL IV ONE (08:53)
[2017-04-11] MEDS ORDERED: NS 1,000 ML IV ONE (10:59)
[2017-04-11] MEDS ORDERED: HYDROmorphONE/DILAUDID 1 MG/ML INJ IVP ONE (10:59)
[2017-04-11] MEDS ORDERED: IBUPROFEN 200 MG TAB PO PRN (13:30)
[2017-04-11] MEDS ORDERED: ONDANSETRON DISINTEGRATING 4 MG TAB PO PRN (13:30)
[2017-04-11] MEDS ORDERED: ACETAMINOPHEN 325 MG TAB PO PRN (13:30)
--- NOTE | 2017-04-11 14:02 | PDGENHP ---
History and Physical - Chief Complaint Pneumonia, increased pain - History of Present Illness 36 yo male with h/o alcohol abuse was just discharged from the hospital after admission for pneumonia and associated pneumococcal bacteremia returns with increased pain. He denies fevers and is afebrile in ED. He denies change in his cough, which remains non-productive. Pain is in his right chest wall, describes this as a sharp, stabbing pain, which started last night. He was taking oxycodone for pain upon discharge which was helpful, but sudden increase in pain occurred last night. History Information - Allergies/Home Medication List Allergies/Adverse Reactions: No Known Allergies Allergy (Verified 04/11/17 11:24) Home Medications: Benzonatate 100 mg PO TID PRN 04/11/17 [Last Taken 04/10/17] Ibuprofen [Motrin (*)] 800 mg PO TID 04/11/17 [Last Taken 04/10/17] Lisinopril/Hctz 20/12.5MG [Zestoretic/Prinzide 20/12.5MG (*)] 1 ea PO DAILY [Last Taken 04/10/17] levOFLOXACIN [levAQUIN (*)] 500 mg PO DAILY 04/11/17 [Last Taken 04/10/17] oxyCODONE IR [Oxycodone Ir (*)] 5 - 10 mg PO Q6H PRN 04/11/17 [Last Taken ] traZODone [traZODONE 50MG (*)] 50 mg PO HS PRN 04/11/17 [Last Taken Unknown] I have personally reviewed and updated: family history, medical history, social history, surgical history - Past Medical History hypertension Additional medical history: Alcohol abuse - sober x5 months. Spinal stenosis - on chronic opiates - Surgical History Reports: no pertinent surgical hx - Family History Positive for: non-pertinent - Social History Smoking Status: Former smoker Alcohol Use: Other (Sober from etoh x5 months. Denies IVDA. Lives at [facility] in recovery.) Review of Systems Review of Systems: ROS: 10pt was reviewed & negative except for what was stated in HPI & below Physical Exam Physical Exam: Temp Pulse Resp BP Pulse Ox 36.4 C 53 L 20 137/94 H 95 04/11/17 12:29 04/11/17 12:29 04/11/17 12:29 04/11/17 12:29 04/11/17 12:29 Constitutional: uncomfortable Eyes: PERRL Ears, Nose, Mouth, Throat: moist mucous membranes Cardiovascular: regular rate and rhythym, no murmur, rub, or gallop Respiratory: no respiratory distress, other (right sided crackles, good air exchange, no wheezes) Gastrointestinal: normoactive bowel sounds, soft, non-tender abdomen Skin: warm Musculoskeletal: full muscle strength Neurologic: AAOx3 Psychiatric: interacting appropriately Lab Data & Imaging Review 04/11/17 08:20 04/11/17 08:20 WBC 22.77 10^3/uL (3.80-9.50) H D 04/11/17 08:20 RBC 4.28 10^6/uL (4.40-6.38) L 04/11/17 08:20 Hgb 13.6 g/dL (13.7-17.5) L 04/11/17 08:20 Hct 38.1 % (40.0-51.0) L 04/11/17 08:20 MCV 89.0 fL (81.5-99.8) 04/11/17 08:20 MCH 31.8 pg (27.9-34.1) 04/11/17 08:20 MCHC 35.7 g/dL (32.4-36.7) 04/11/17 08:20 RDW 13.0 % (11.5-15.2) 04/11/17 08:20 Plt Count 262 10^3/uL (150-400) D 04/11/17 08:20 MPV 8.6 fL (8.7-11.7) L 04/11/17 08:20 Neut % (Auto) Not Reported 04/11/17 08:20 Lymph % (Auto) Not Reported 04/11/17 08:20 Long % (Auto) Not Reported 04/11/17 08:20 Eos % (Auto) Not Reported 04/11/17 08:20 Baso % (Auto) Not Reported 04/11/17 08:20 Nucleat RBC Rel Count 0.0 % (0.0-0.2) 04/11/17 08:20 Absolute Neuts (auto) Not Reported 04/11/17 08:20 Absolute Lymphs (auto) Not Reported 04/11/17 08:20 Absolute Monos (auto) Not Reported 04/11/17 08:20 Absolute Eos (auto) Not Reported 04/11/17 08:20 Absolute Basos (auto) Not Reported 04/11/17 08:20 Absolute Nucleated RBC 0.00 10^3/uL (0-0.01) 04/11/17 08:20 Immature Gran % Not Reported 04/11/17 08:20 Seg Neutrophils % 85 % 04/11/17 08:20 Lymphocytes % 7 % 04/11/17 08:20 Monocytes % 4 % 04/11/17 08:20 Eosinophils % 2 % 04/11/17 08:20 Metamyelocytes % 2 % 04/11/17 08:20 Immature Gran # Not Reported 04/11/17 08:20 Absolute Seg Neuts 19.35 10^/uL (1.70-6.50) H 04/11/17 08:20 Absolute Lymphocytes 1.59 10^3/uL (1.00-3.00) 04/11/17 08:20 Absolute Monocytes 0.91 10^3/uL (0.30-0.80) H 04/11/17 08:20 Absolute Eosinophils 0.46 10^3/uL (0.03-0.40) H 04/11/17 08:20 Absolute Metamyelocyte 0.46 10^3/mL (0.00-0.00) H 04/11/17 08:20 Platelet Estimate ADEQUATE (ADEQ) 04/11/17 08:20 Polychromasia 1+ H 04/11/17 08:20 Sodium 138 mEq/L (135-145) 04/11/17 08:20 Potassium 3.8 mEq/L (3.5-5.2) 04/11/17 08:20 Chloride 101 mEq/L (97-110) 04/11/17 08:20 Carbon Dioxide 28 mEq/l (22-31) 04/11/17 08:20 Anion Gap 9 mEq/L (8-16) 04/11/17 08:20 BUN 14 mg/dL (7-23) 04/11/17 08:20 Creatinine 0.7 mg/dL (0.7-1.3) 04/11/17 08:20 Estimated GFR > 60 04/11/17 08:20 Glucose 96 mg/dL (70-100) 04/11/17 08:20 Calcium 8.7 mg/dL (8.5-10.4) 04/11/17 08:20 Total Bilirubin 1.2 mg/dL (0.1-1.4) 04/11/17 08:20 Conjugated Bilirubin 0.3 mg/dL (0.0-0.5) 04/11/17 08:20 Unconjugated Bilirubin 0.9 mg/dL (0.0-1.1) 04/11/17 08:20 AST 30 IU/L (17-59) 04/11/17 08:20 ALT 70 IU/L (21-72) 04/11/17 08:20 Alkaline Phosphatase 191 IU/L (38-126) H 04/11/17 08:20 Total Protein 5.6 g/dL (6.3-8.2) L 04/11/17 08:20 Albumin 2.9 g/dL (3.5-5.0) L 04/11/17 08:20 Visualized and Interpreted Chest x-ray results: Yes Chest X-Ray results: infiltrate Assessment & Plan Assessment: Pneumococcal PNA and bacteremia - Afebrile. No tachycardia, tachypnea or hypoxia, but wbc's up to 22K. Reviewed case, CXR's and CT with ID. He has a very small right pleural effusion, seems unlikely this is an empyema, but will consider thoracentesis depending on clinical course. No h/o IVDA, but check echo. Will change from Levaquin to Ceftriaxone. Needs pain control, IV toradol , prn oxy, dilaudid. Check PCT. Trend wbc's. Follow fever curve. Elevated LFT's - Trending down since recent discharge. May have been related to initial sepsis / RLL infection. He had negative hepatitis panel, u/s reassuring. H/O etoh abuse - sober x5 months living at [facility]. Spinal stenosis on chronic opiates - Stable, pain control as above. Full code DVT PPLX - low risk, place SCD's, ambulation Dispo - inpt, anticipate >48 hrs hospitalization for ongoing treatment of PNA and associated pain
[2017-04-11] MEDS: KETOROLAC 30 MG/1 ML SDV IVP PRN ×2 (14:19→21:14)
[2017-04-11] MEDS: oxyCODONE IR 5 MG TAB PO PRN ×2 (14:19→17:27)
[2017-04-11] MEDS: cefTRIAXone 1 GM in STERILE WATER INJ 10 ML IV SCH (14:21)
[2017-04-11] MEDS: ONDANSETRON 4 MG/2 ML VIAL IVP PRN ×2 (14:27→17:48)
--- NOTE | 2017-04-11 14:44 | PDMN ---
Medical Necessity Medical necessity: C/M review: est. > 2 MN LOS for eval and TX of pneumococcal pneumonia and bacteremia, increased right chest wall pain, elevated LFTs, requiring planned echocardiogram, ongoing IV Ceftriaxone, IV Ketrolac, comorbid recent hospitalization for pneumococcal pneumonia and bacteremia, history of alcohol abuse, sober x 5 months living at [facility] [place], spinal stenosis on chronic opiates, hypertension per H/P.
--- NOTE | 2017-04-11 16:42 | CPEKG ---
Heart Rate: 60 RR Interval: 1000 P-R Interval: 140 QRSD Interval: 114 QT Interval: 416 QTC Interval: 416 P [place]: -3 QRS [place]: 47 T Wave [place]: 59 EKG Severity - ABNORMAL ECG - EKG Impression: SINUS RHYTHM EKG Impression: NONSPECIFIC INTRAVENTRICULAR CONDUCTION DELAY Electronically Signed By: Yakov Estrada 12-Apr-2017 07:33:31
[2017-04-11] MEDS: NICOTINE 21 MG/24 HR PATCH TD SCH (17:54)
[2017-04-11] MEDS: HYDROmorphONE/DILAUDID 1 MG/ML INJ IVP PRN (19:52)
[2017-04-11] MEDS: PATCH REMOVAL 1 EA PATCH TD SCH (22:44)
[2017-04-12] MEDS: oxyCODONE IR 5 MG TAB PO PRN ×4 (01:41→20:31)
[2017-04-12] MEDS: ONDANSETRON 4 MG/2 ML VIAL IVP PRN ×5 (01:41→20:27)
[2017-04-12 04:42] LABS: PLATELET COUNT 289 10^3/uL (150-400)
[2017-04-12] MEDS: HYDROmorphONE/DILAUDID 1 MG/ML INJ IVP PRN ×3 (07:17→20:26)
--- NOTE | 2017-04-12 09:25 | ASMTLACE ---
LACE Length of stay for Answers: 3 days current admission Acuity / Level of Answers: Yes Care: Did the patient have an inpatient admission? Comorbidities - select Answers: Opioid dependence all that apply / Chronic pain Other # of Emergency department Answers: 1-2 visits in the last 6 months Social determinants Answers: History of substance abuse (ETHO, street drugs, prescription drugs, etc.) Score: 15 Date Signed: 04/12/2017 09:24 AM Electronically Signed By:Dulce Maria Jung LCSW
[2017-04-12] MEDS: cefTRIAXone 1 GM in STERILE WATER INJ 10 ML IV SCH (09:26)
[2017-04-12] MEDS: NICOTINE 21 MG/24 HR PATCH TD SCH (09:27)
--- NOTE | 2017-04-12 09:28 | ASMTCMCOM ---
CM Note CM Note Notes: 36 year old male admitted for PNA, Sepsis, Bacteremia. Was recent admit to [facility] with similar Dx. Patient has a hx of ETOH, HTN, Spinal Stenosis-narc dependent. Being tx at the [facility]-sober for 5mos. Has a brother who is supportive. CM to follow. May not have discharge needs. Date Signed: 04/12/2017 09:27 AM Electronically Signed By:Dulce Maria Jung LCSW
[2017-04-12] MEDS: KETOROLAC 30 MG/1 ML SDV IVP PRN (09:51)
--- NOTE | 2017-04-12 10:49 | ECHO ---
[email or web address] [address] [address] Main: [phone] Fax: Transthoracic Echocardiogram Name: EVERARDO SALVADOR MR#: [id number] Study Date: 04/12/2017 Study Time: 08:23 AM Date of : 1980 Age: 36 year(s) Height: 172.7 cm (68 in.) Weight: 78.02 kg (172 lb.) BSA: 1.92 m2 Gender: Male Examination: Echo Indication: Pneumococcal PNA, Bacteremia, R/O Vegetation Image Quality: Contrast: Requested by: Ernestine Lynne BP: / Heart Rate: Rhythm: Normal sinus rhythm Indication: Pneumococcal PNA, Bacteremia, R/O Vegetation Procedure Staff Phy Therapist: Alex Contreras [facility] Reading Physician: Raad Arredondo Requesting Provider: Conclusions: Normal global systolic LV function. EF is 74 %. The left atrium is normal in size. The right atrium is normal in size. No evidence of endocarditis Measurements: Chambers Valvular Assessment AV/MV Valvular Assessment TV/PV Normal Normal Normal Name Value Range Name Value Range Name Value Range Ao Callie (MM): 3.4 cm (2.2 cm-3.7 AV Vmax: 1.56 m/s (1 m/s-1.7 TR Vmax: 2.82 mm/s ( - ) cm) m/s) TR PGmax: 32 mmHg ( - ) IVSd (2D): 1.0 cm (0.6 cm-1.1 AV maxP mmHg ( - ) syst. PAP: 37 mmHg ( - ) cm) LVOT Vmax: 1.36 m/s (0.7 m/s-1.1 PV Vmax: 1.13 m/s (0.6 m/s-0.9 LVDd (2D): 4.8 cm (4.2 cm-5.9 m/s) m/s) cm) MV E Vmax: 1.21 m/s ( - ) PV PGmax: 5 mmHg ( - ) LVDs (2D): 2.7 cm (2.1 cm-4 MV A Vmax: 0.56 m/s ( - ) cm) MV E/A: 2.16 ( - ) LVPWd (2D): 1.2 cm (0.6 cm-1 cm) LVEF (2D): 74 (>=54 %) Continued Measurements: Chambers Valvular Assessment AV/MV Valvular Assessment TV/PV Name Value Name Value Name Value LADs Lon.4 cm MV E/E' Septal: 12.10 CVP (est.): 5 mmHg LA Area: 16.4 cm2 MV E/E' Lateral: 7.30 Patient: EVERARDO SALVADOR Study Date: 04/12/2017 Page 1 of 2 08:23 AM Findings: Left Ventricle: Normal size left ventricle. No LV hypertrophy. Normal global systolic LV function. EF is 74 %. No regional wall motion abnormality. Normal diastolic LV function. Right Ventricle: Normal size right ventricle. Left Atrium: The left atrium is normal in size. Right Atrium: The right atrium is normal in size. Mitral Valve: The mitral valve is normal in appearance and function. There is no mitral valve regurgitation. Aortic Valve: The aortic valve is normal in appearance and function. The aortic valve is tri-leaflet. There is no aortic valve regurgitation. No aortic valve stenosis is present. Tricuspid Valve: The tricuspid valve is normal in appearance and function. Trivial tricuspid valve regurgitation. Pulmonic Valve: The pulmonic valve is normal in appearance and function. Trivial pulmonic valve regurgitation. Aorta: The aorta is normal. Pericardium: No pericardial effusion. Exam Comments: There is no obvious sign of valve vegetation.. (No Signature Object) Patient: EVERARDO SALVADOR Study Date: 04/12/2017 Page 2 of 2 08:23 AM [id number]
[2017-04-12] MEDS ORDERED: HYDROmorphONE/DILAUDID 1 MG/ML INJ IVP ONE (11:10)
[2017-04-12] MEDS: LORazepam 1 MG TAB PO PRN ×2 (14:40→22:04)
--- NOTE | 2017-04-12 14:49 | HOSPPROG ---
Hospitalist Progress Note Assessment/Plan: Pneumococcal PNA and bacteremia - Afebrile. No tachycardia, tachypnea or hypoxia, wbc's trending down. Changed from Levaquin to Ceftriaxone. -consider thoracentesis if condition worsening though it seems unlikely the small effusion seen on CT represents an empyema -trend wbc's -pain control is a significant issue: IV toradol, tylenol, prn oxy, dilaudid Elevated LFT's - Trending down since recent discharge. May have been related to initial sepsis / RLL infection. He had negative hepatitis panel, u/s reassuring. H/O etoh abuse - sober x5 months living at [facility]. Spinal stenosis on chronic opiates - Stable, pain control as above. Full code DVT PPLX - low risk, place SCD's, ambulation Dispo - cont inpt Subjective: Pt notes feeling a little better today, slightly less pain. Still, he is quite distressed about his discomfort. No fevers. Not much cough. Objective: Vital Signs Temp Pulse Resp BP Pulse Ox 36.6 C 61 16 134/78 H 92 04/12/17 11:01 04/12/17 11:01 04/12/17 11:01 04/12/17 11:01 04/12/17 11:01 Laboratory Results 04/12/17 04:19 04/11/17 04/12/17 04/13/17 05:59 05:59 05:59 Intake Total 500 Balance 500 - Physical Exam Constitutional: uncomfortable, other (tearful) Eyes: PERRL Ears, Nose, Mouth, Throat: moist mucous membranes Cardiovascular: regular rate and rhythym Respiratory: no respiratory distress, other (right sided crackles) Gastrointestinal: normoactive bowel sounds, soft, non-tender abdomen Skin: warm Musculoskeletal: full muscle strength Neurologic: AAOx3 Psychiatric: interacting appropriately ICD10 Worksheet Patient Problems: Problems Problem Status Onset Pneumonia Acute Sepsis Acute
[2017-04-12] MEDS: KETOROLAC 30 MG/1 ML SDV IVP SCH ×2 (16:11→22:04)
[2017-04-12] MEDS: PATCH REMOVAL 1 EA PATCH TD SCH (20:33)
[2017-04-13] MEDS: oxyCODONE IR 5 MG TAB PO PRN ×6 (00:25→20:47)
[2017-04-13] MEDS: ONDANSETRON 4 MG/2 ML VIAL IVP PRN ×6 (00:26→20:48)
[2017-04-13] MEDS: HYDROmorphONE/DILAUDID 1 MG/ML INJ IVP PRN ×3 (01:38→09:57)
[2017-04-13] MEDS: KETOROLAC 30 MG/1 ML SDV IVP SCH ×4 (04:27→22:49)
[2017-04-13 05:05] LABS: PLATELET COUNT 318 10^3/uL (150-400)
[2017-04-13] MEDS: LORazepam 1 MG TAB PO PRN ×3 (07:55→22:49)
[2017-04-13] MEDS: cefTRIAXone 1 GM in STERILE WATER INJ 10 ML IV SCH (08:39)
[2017-04-13] MEDS: NICOTINE 21 MG/24 HR PATCH TD SCH (08:39)
--- NOTE | 2017-04-13 13:50 | HOSPPROG ---
Hospitalist Progress Note Assessment/Plan: 36 yo male admitted 04/06 with PNA and pneumococcal bacteremia. Discharged 04/09 with oral Levaquin, readmitted 2 d later with increased pain and rising wbc's. Pneumococcal PNA and bacteremia - Afebrile. No tachycardia, tachypnea or hypoxia, wbc's trending down again. Changed from Levaquin to Ceftriaxone. Note , he likely didn't get a dose of atbx over the weekend as he vomited after taking his oral Levaquin at the [facility]. -small effusion noted on CT, doubt this represents empyema given his clinical improvement -pain control / coping is a significant issue: IV toradol, tylenol, prn oxy, ativan -d/c IV dilaudid -plan for slightly longer course of atbx given clinical worsening and missed atbx dose mid-course Elevated LFT's - Trending down since recent discharge. May have been related to initial sepsis / RLL infection vs etoh hx. -negative hepatitis panel -u/s reassuring. H/O etoh abuse - sober x5 months living at [facility]. Spinal stenosis on chronic opiates - Stable, pain control as above. Full code DVT PPLX - low risk, SCD's, ambulation Dispo - cont inpt, possible d/c in am Subjective: Pt finally starting to feel better, notes he isn't crying in pain any longer, able to take more of a deep breath. No fevers. Objective: Vital Signs Temp Pulse Resp BP Pulse Ox 36.5 C 66 17 128/82 H 90 L 04/13/17 11:41 04/13/17 11:41 04/13/17 11:41 04/13/17 11:41 04/13/17 11:41 Laboratory Results 04/13/17 04:51 04/12/17 04/13/17 04/14/17 05:59 05:59 05:59 Intake Total 500 250 Balance 500 250 - Physical Exam Constitutional: no apparent distress Eyes: PERRL Ears, Nose, Mouth, Throat: moist mucous membranes Cardiovascular: regular rate and rhythym Respiratory: no respiratory distress, inspiratory crackles (decreased crackles on right) Gastrointestinal: normoactive bowel sounds, soft, non-tender abdomen Skin: warm Musculoskeletal: full muscle strength Neurologic: AAOx3 Psychiatric: interacting appropriately ICD10 Worksheet Patient Problems: Problems Problem Status Onset Pneumonia Acute Sepsis Acute
[2017-04-13] MEDS: ACETAMINOPHEN 325 MG TAB PO SCH ×2 (16:00→22:49)
[2017-04-13] MEDS: PATCH REMOVAL 1 EA PATCH TD SCH (20:15)
[2017-04-14] MEDS: ONDANSETRON 4 MG/2 ML VIAL IVP PRN ×4 (00:27→12:35)
[2017-04-14] MEDS: oxyCODONE IR 5 MG TAB PO PRN ×5 (00:27→16:21)
[2017-04-14] MEDS: KETOROLAC 30 MG/1 ML SDV IVP SCH ×2 (04:36→08:28)
[2017-04-14 05:59] LABS: PLATELET COUNT 332 10^3/uL (150-400)
[2017-04-14] MEDS: NICOTINE 21 MG/24 HR PATCH TD SCH (08:27)
[2017-04-14] MEDS: ACETAMINOPHEN 325 MG TAB PO SCH ×2 (08:28→16:20)
[2017-04-14] MEDS: cefTRIAXone 1 GM in STERILE WATER INJ 10 ML IV SCH (08:29)
[2017-04-14] MEDS: LORazepam 1 MG TAB PO PRN (08:42)
[2017-04-14 11:18] VITALS: RESP 17
--- NOTE | 2017-04-14 14:37 | HOSPPROG ---
Hospitalist Progress Note Assessment/Plan: 36 yo male admitted 04/06 with PNA and pneumococcal bacteremia. Discharged 04/09 with oral Levaquin, readmitted 2 d later with increased pain and rising wbc's. Pneumococcal PNA and bacteremia - Afebrile. No tachycardia, tachypnea or hypoxia, wbc's trending down again. Changed from Levaquin to Ceftriaxone. Note , he likely didn't get a dose of atbx over the weekend as he vomited after taking his oral Levaquin at the [facility]. -small effusion noted on CT, doubt this represents empyema given his clinical improvement -pain control / coping is a significant issue: IV toradol, tylenol, prn oxy, ativan -d/c IV dilaudid -plan for slightly longer course of atbx given clinical worsening and missed atbx dose mid-course L IV site: induration and pain without fever, warmth, erythema u/s to eval for fluid collection warm compresses Elevated LFT's - Trending down since recent discharge. May have been related to initial sepsis / RLL infection vs etoh hx. -negative hepatitis panel -u/s reassuring. H/O etoh abuse - sober x5 months living at [facility]. Spinal stenosis on chronic opiates - Stable, pain control as above. Full code DVT PPLX - low risk, SCD's, ambulation Dispo - cont inpt, possible d/c in am Subjective: case d/w dr montgomery. c/o pain at site of IV removal Objective: Vital Signs Temp Pulse Resp BP Pulse Ox 36.9 C 78 17 132/96 H 91 L 04/14/17 11:17 04/14/17 11:17 04/14/17 11:17 04/14/17 11:17 04/14/17 11:17 Laboratory Results 04/14/17 05:13 04/13/17 04/14/17 04/15/17 05:59 05:59 05:59 Intake Total 250 750 Balance 250 750 - Physical Exam Constitutional: no apparent distress, appears nourished Eyes: PERRL, anicteric sclera Ears, Nose, Mouth, Throat: moist mucous membranes, hearing normal Cardiovascular: regular rate and rhythym, no murmur, rub, or gallop Respiratory: other (decreased breath sounds R lung field) Gastrointestinal: normoactive bowel sounds, soft, non-tender abdomen Genitourinary: No vásquez in urethra Skin: warm, normal color Musculoskeletal: full muscle strength, no muscle tenderness Neurologic: AAOx3 Psychiatric: interacting appropriately ICD10 Worksheet Patient Problems: Problems Problem Status Onset Pneumonia Acute Sepsis Acute
[2017-04-14 15:31] VITALS: BP 146/94; PULSE 73; TEMP 99.5; O2SAT 90
--- NOTE | 2017-04-14 16:58 | ASDISCHSUM ---
Discharge Information Plan Status:Home with No Needs Medically Cleared to Leave: Discharge Date:04/14/2017 04:53 PM CM D/C Disposition:Home, Routine, Self-Care ADT D/C Disposition:Home, Routine, Self-Care Projected Discharge Date:04/14/2017 04:53 PM Transportation at D/C: Discharge Delay Reason: Follow-Up Date:04/14/2017 04:53 PM Discharge Slot: Final Diagnosis:PNA, Sepsis, Bacteremia Placement Information Patient Contact Information Contact Name:MARIA VICTORIA Relationship:Margaretmalik Address:[address] [place] City:[place] Alternate Phone: State/Zip Code:[place] [address] Email: Financial Information Financial Class: Primary Plan Desc:[employer] [place] Primary Plan Number:[id number] Secondary Plan Desc: Secondary Plan Number: Assessment Information LACE LACE Length of stay for Answers: 3 days current admission Acuity / Level of Answers: Yes Care: Did the patient have an inpatient admission? Comorbidities - select Answers: Opioid dependence all that apply / Chronic pain Other # of Emergency department Answers: 1-2 visits in the last 6 months Social determinants Answers: History of substance abuse (ETHO, street drugs, prescription drugs, etc.) Score: 15 Date Signed: 04/12/2017 09:24 AM Electronically Signed By:Dulce Maria Jung LCSW [facility] CM Progress Note CM Note CM Note Notes: 36 year old male admitted for PNA, Sepsis, Bacteremia. Was recent admit to [facility] with similar Dx. Patient has a hx of ETOH, HTN, Spinal Stenosis-narc dependent. Being tx at the [facility]-sober for 5mos. Has a brother who is supportive. CM to follow. May not have discharge needs. Date Signed: 04/12/2017 09:27 AM Electronically Signed By:Dulce Maria Jung LCSW Case Management Discharge Plan Note Case Management Discharge Discharge Order Complete? Answers: Yes Patient to Obtain Answers: Other Notes: [facility] Medications Transportation Arranged Answers: Taxi - Voucher Discharge Comments Notes: Patient discharging back to TRT program at the [facility]. Taxi voucher provided and [facility] notified. Date Signed: 04/14/2017 04:41 PM Electronically Signed By:Dinorah Thompson RN Intervention Information Intervention Type:*Incorrect Registration Date of Service:04/11/2017 11:58 AM Patient Type:Inpatient Staff Member:MAGALYS Womack Shelly Hours:0.25 Discipline: Severity:1 (0-1 Hours) Comment:Registered observation, written admit order inpatient status.
--- NOTE | 2017-04-14 18:08 | GDS ---
[f rep st] DISCHARGE SUMMARY DISCHARGE DIAGNOSES: 1. Recent admission for a pneumococcal pneumonia with bacteremia. 2. Leukocytosis. 3. Pleuritic pain. 4. Alcoholism, in remission for 5-1/2 months. 5. Chronic pain secondary to spinal stenosis on continuous opiates with stable use. Please see admission history and physical by Dr. Ernestine Lynne. The patient presented with ongoing pleuritic pain. He had a negative CTA. Chest x-ray demonstrated ongoing infiltrate. He was afebrile while here. He did have a leukocytosis that resolved. He was i nitiated on ceftriaxone for the time during here. He had been discharged on Levaquin. The day of lionel weston, the patient is feeling better. His pleuritic pain largely improved but he did have some ant ecubital fullness on the left side at the site of an IV removal and ultrasound revealed superficial t hrombophlebitis. There was no evidence of abscess. There is no erythema or warmth. He was advised to keep it elevated, to use warm compresses, and seek care for swelling of his hand or lymphangitic s treaking. The patient is discharged home today. /[id number]/MODL
== END 2017-04-14 16:53 | disposition home or self-care (01) | DRG 194 ==
LOC: OBSVTOIN 11:58 → F1N 12:23
PROVIDERS: ADMIT Internal Medicine; ATTEND Internal Medicine
DX: J13 Pneumonia due to Streptococcus pneumoniae (principal); J90 Pleural effusion, not elsewhere classified; R78.81 Bacteremia; F10.21 Alcohol dependence, in remission; F11.20 Opioid dependence, uncomplicated; M48.00 Spinal stenosis, site unspecified; I80.8 Phlebitis and thrombophlebitis of other sites; R94.5 Abnormal results of liver function studies; D72.829 Elevated white blood cell count, unspecified; I10 Essential (primary) hypertension; Z87.891 Personal history of nicotine dependence
CPT/HCPCS: 96365; J0696; J1170; J1885; J1956; J2405; Q9967

== ENCOUNTER 2017-04-16 13:03 | Emergency (ER) | payer MEDICAID ==
--- NOTE | 2017-04-16 13:16 | CPEKG ---
Heart Rate: 90 RR Interval: 667 P-R Interval: 144 QRSD Interval: 114 QT Interval: 360 QTC Interval: 441 P [place]: 45 QRS [place]: 64 T Wave [place]: 48 EKG Severity - ABNORMAL ECG - EKG Impression: SINUS RHYTHM EKG Impression: INCOMPLETE RIGHT BUNDLE BRANCH BLOCK EKG Impression: Unchanged from previous Electronically Signed By: Shane Craft 16-Apr-2017 14:51:15
--- NOTE | 2017-04-16 13:28 | EDPHY ---
H & P Stated Complaint: Chest pain, recent admission for PNA, left arm pain Time Seen by Provider: 04/16/17 13:14 HPI/ROS: CHIEF COMPLAINT: Left arm pain HISTORY OF PRESENT ILLNESS: The patient is a 36-year-old man with a history of alcoholism as well as chronic pain on opiates who comes to the emergency department complaining of continued pain in his left antecubital region. He was admitted to the hospital twice in the last 2 weeks for pneumonia. He initially had bacteremia and was treated with ceftriaxone and discharged with Levaquin. He returned a few days later with primarily pleuritic chest pain. His CT angio was negative. He remained afebrile and not tachycardic and not hypoxic in the hospital. He was hospitalized for 4 days and received IV ceftriaxone during the stay. He continued to have pleuritic pain on that side during his stay. He was discharged again 2 days ago on Levaquin. He states that his pain has continued since that time but has been unchanged. It is not worsened. Prior to his hospital stay he also began complaining of pain in his left antecubital region. Ultrasound was done which revealed superficial thrombophlebitis. No abscess or DVT. Patient is concerned that maybe he has now developed an abscess or DVT. REVIEW OF SYSTEMS: Constitutional: denies: chills, fever, recent illness, recent injury EENTM: denies: blurred vision, double vision, nose congestion Respiratory: denies: cough, shortness of breath Cardiac: denies: chest pain, irregular heart rate, lightheadedness, palpitations Gastrointestinal/Abdominal: denies: abdominal pain, diarrhea, nausea, vomiting, blood streaked stools Genitourinary: denies: dysuria, frequency, hematuria, pain Musculoskeletal: denies: joint pain, muscle pain Skin: See HPI Neurological: denies: headache, numbness, paresthesia, tingling, dizziness, weakness Hematologic/Lymphatic: denies: blood clots, easy bleeding, easy bruising Immunologic/allergic: denies: HIV/AIDS, transplant EXAM: GENERAL: Tearful, anxious HEAD: Atraumatic, normocephalic. EYES: Pupils equal round and reactive to light, extraocular movements intact, sclera anicteric, conjunctiva are normal. ENT: TMs normal, nares patent, oropharynx clear without exudates. Moist mucous membranes. NECK: Normal range of motion, supple without lymphadenopathy or JVD. LUNGS: Breath sounds clear to auscultation bilaterally and equal. No wheezes rales or rhonchi. HEART: Regular rate and rhythm without murmurs, rubs or gallops. ABDOMEN: Soft, nontender, normoactive bowel sounds. No guarding, no rebound. No masses appreciated. BACK: No CVA tenderness, no spinal tenderness, step-offs or deformities EXTREMITIES: Left arm pain in the antecubital region with palpable cord. No erythema. No fluctuance. No warmth. NEUROLOGICAL: Cranial nerves II through XII grossly intact. Normal speech, normal gait. 5/5 strength, normal movement in all extremities, normal sensation PSYCH: Normal mood, normal affect. SKIN: Warm, dry, normal turgor, no visible rashes or lesions. Source: Patient Exam Limitations: No limitations - Personal History Current Tetanus/Diphtheria Vaccine: Yes Current Tetanus Diphtheria and Acellular Pertussis (TDAP): Yes - Medical/Surgical History Hx Asthma: No Hx Chronic Respiratory Disease: No Hx Diabetes: No Hx Cardiac Disease: No Hx Renal Disease: No Hx Cirrhosis: No Hx Alcoholism: Yes Hx HIV/AIDS: No Hx Splenectomy or Spleen Trauma: No Other PMH: etoh, chronic back pain, chronic opiate use, high blood pressure, PNA - Family History Significant Family History: No pertinent family hx - Social History Smoking Status: Former smoker Alcohol Use: Sober (See above) Drug Use: None Constitutional: Initial Vital Signs Temperature (C) 36.7 C 04/16/17 13:04 Heart Rate 110 H 04/16/17 13:04 Respiratory Rate 18 04/16/17 13:04 Blood Pressure 140/94 H 04/16/17 13:04 O2 Sat (%) 95 04/16/17 13:04 O2 Delivery Mode Room Air Allergies/Adverse Reactions: No Known Allergies Allergy (Verified 04/11/17 11:24) Home Medications: Medication Instructions Recorded Benzonatate 100 mg PO TID PRN 04/11/17 Ibuprofen [Motrin (*)] 800 mg PO TID 04/11/17 Lisinopril/Hctz 20/12.5MG 1 ea PO DAILY 04/11/17 [Zestoretic/Prinzide 20/12.5MG (*)] levOFLOXACIN [levAQUIN (*)] 500 mg PO DAILY 04/11/17 oxyCODONE IR [Oxycodone Ir (*)] 5 - 10 mg PO Q6H PRN 04/11/17 traZODone [traZODONE 50MG (*)] 50 mg PO HS PRN 04/11/17 oxyCODONE IR [Oxycodone Ir (*)] 5 - 10 mg PO Q4H PRN #10 tab 04/14/17 Guaifenesin 04/16/17 Medical Decision Making - Diagnostics EKG Interpretation: An EKG obtained and was read and documented in trace view. Please see trace view for full reading and report. Sinus rhythm, unchanged from previous, no sign of right heart strain or ST elevation. Imaging Results: Imaging Impressions Extremity Venous Study 04/16/17 13:24 Impression: 1. Superficial venous thrombophlebitis involving the left basilic and cephalic veins at the level of the antecubital fossa. 2. There is no sonographic evidence of deep venous thrombosis in the left arm. Findings were discussed with KENIA GILLIS MD at 14:43, on 04/16/2017. Imaging: Discussed imaging studies w/ machine scallop cutter Radiologist ED Course/Re-evaluation: The patient is not hypoxic. He denies shortness of breath. He does not have a fever tachycardia. He states that his pleuritic chest pain is unchanged over the last 2 weeks. We obtained it EKG here that that is unchanged as well. At this point we will defer repeat workup of his pleuritic chest pain. The patient understands and agrees with this plan. He is however concerned about his left arm pain thrombophlebitis. He would like us to perform an ultrasound to rule out DVT or abscess. We will do this. 2:50 p.m. we discussed the ultrasound results. The patient is reassured. I suggested he continues to take NSAIDs for the thrombophlebitis and pain. He agrees with this plan. He is prepared to be discharged. We discussed indications for returning. Differential Diagnosis: Partial list of the Differential diagnosis considered include but were not limited to; thrombophlebitis, DVT, abscess, pleuritic chest pain, chronic pain and although unlikely based on the history and physical exam, I also considered worsening pneumonia, sepsis, PE, acute coronary disease. I discussed these differential diagnoses and the plan with the patient as well as the usual and expected course. The patient understands that the diagnosis is provisional and that in medicine we are not always correct and that further workup is often warranted. Usual and customary warnings were given. All of the patient's questions were answered. The patient was instructed to return to the emergency department should the symptoms at all worsen or return, otherwise to followup with the physician as we discussed. Departure - Departure Disposition: Home, Routine, Self-Care Clinical Impression: Superficial thrombophlebitis of left upper extremity Condition: Fair Instructions: Superficial Thrombophlebitis (ED) Referrals: MARIO DARDEN [Other] - As per Instructions
[2017-04-16 16:13] VITALS: BP 135/87; PULSE 94; RESP 20; TEMP 98.4; O2SAT 93
== END 2017-04-16 15:00 | disposition home or self-care (01) ==
DX: I82.612 Acute embolism and thrombosis of superficial veins of left upper extremity (principal); I10 Essential (primary) hypertension; Z87.891 Personal history of nicotine dependence

== ENCOUNTER 2017-04-20 21:46 | Emergency (ER) | payer MEDICAID ==
[2017-04-20 21:56] VITALS: O2SAT 94
[2017-04-20] MEDS ORDERED: NS 1,000 ML IV ONE (23:07)
[2017-04-20 23:09] VITALS: TEMP 99
[2017-04-20 23:36] LABS: PLATELET COUNT 522 10^3/uL (150-400)
[2017-04-20] MEDS ORDERED: DIAZEPAM 10 MG/2 ML SYR IVP ONE (23:41)
[2017-04-20] MEDS ORDERED: KETOROLAC 30 MG/1 ML SDV IVP ONE (23:41)
--- NOTE | 2017-04-20 23:41 | EDPHY ---
General - History Smoking Status: Former smoker Narrative: CHIEF COMPLAINT: "lock jaw" HISTORY OF PRESENT ILLNESS: Patient complains of 2 day history of "locked jaw." States that he has had difficulty opening and closing his mouth, difficulty swallowing, shortness of breath, jaw and throat pain. This started early yesterday morning. It has been constant duration. Rated as severe. No fever or chills. No vomiting. Difficulty eating drinking to the pain. It is primarily over the TMJ joints. He has still been taking his medication from previous pneumonia, for which she was admitted to this hospital. No other associated complaints or modifying factors. REVIEW OF SYSTEMS: Ten systems reviewed and are negative unless otherwise noted in the HPI PCP: Mario Harrison SPECIALISTS: None PAST MEDICAL HISTORY: Pneumonia, previous alcohol abuse 6 months sober, chronic back pain, previous opiate abuse, hypertension PAST SURGICAL HISTORY: No recent surgeries FAMILY HISTORY: Noncontributory EXAMINATION General Appearance: Alert, no distress Head: normocephalic, atraumatic Eyes: Pupils equal and round, no conjunctival pallor or injection ENT, Mouth: Mucous membranes moist. Uvula midline. Airway is widely patent. There is no erythema or edema of the posterior pharynx. No trismus. There is limited range of motion of the mandible. Neck: Normal inspection, supple, non-tender Respiratory: Lungs are clear to auscultation. No wheezing rhonchi or crackles Cardiovascular: Regular rate and rhythm. No murmur Gastrointestinal: Abdomen is soft and nontender Back: non-tender, no bony abnormalities Neurological: A&O, nonfocal, normal gait Skin: Warm and dry, no rash Extremities: Nontender, no pedal edema Psychiatric: Mood and affect normal DIFFERENTIAL DIAGNOSES: Including but not limited to TMJ dysfunction, neck abscess, peritonsillar abscess, pharyngitis, MDM: 11:05 p.m. Painful swallowing, difficulty breathing, and self described "lock jaw" without trismus. Patient appears to have TMJ etiology but he does describe some drooling or difficulty swallowing, thus I have ordered CT scan of the neck soft tissue. His initial vital signs are tachycardic, but repeat vital signs are within normal limits. He does not meet SIRS criteria. The uvula is midline and there is no hot potato or hoarse voice. No pharyngitis on examination. I have ordered IV placement, laboratory studies as well. 11:40 p.m. I-STAT reveals normal creatinine 0.6. I have ordered Toradol and Valium. CT scan pending. 12:05 p.m. Case discussed with Dr. Bettencourt. No abnormality of the soft tissue of the neck. There may be TMJ changes as documented. 12:15 a.m. Patient re-evaluated. He is starting to improve. He has received IV Toradol IV Valium. He is now moving his mandible more freely. Airway remains patent. We discussed the likelihood of TMJ dysfunction. We discussed 2 Aleve by mouth twice daily. We discussed short course of muscle relaxant. We discussed follow -up with his established dentist to be referred to a TMJ specialist. We discussed ED precautions. I have answered all his questions. He is comfortable this plan and discharged home stable condition. SUPERVISION: Patient was independently examined, but I discussed the case with my secondary supervising physician Dr. Tello (René Sousa) PHYSICIAN DOCUMENTATION: The patient was evaluated and managed by the Physician Prototype Carpenter. My co- signature indicates that I have reviewed this chart and I agree with the findings and plan of care as documented. I am the secondary supervising physician. (Izabel Tello) - Diagnostics Imaging Results: Imaging Impressions Neck CT 04/20/17 23:07 Impression: 1. Soft tissues of the neck are negative. 2. Possible abnormality of the TMJs. Results called and discussed with René Sousa on 04/21/2017 at 0:07 - Objective Vital Signs: Initial Vital Signs Temperature (C) 37.3 C 04/20/17 21:52 Heart Rate 117 H 04/20/17 21:52 Respiratory Rate 16 04/20/17 21:52 Blood Pressure 136/93 H 04/20/17 21:52 O2 Sat (%) 94 04/20/17 21:52 O2 Delivery Mode Room Air Allergies/Adverse Reactions: No Known Allergies Allergy (Verified 04/20/17 21:56) Home Medications: Medication Instructions Recorded Benzonatate 100 mg PO TID PRN 04/11/17 Ibuprofen [Motrin (*)] 800 mg PO TID 04/11/17 Lisinopril/Hctz 20/12.5MG 1 ea PO DAILY 04/11/17 [Zestoretic/Prinzide 20/12.5MG (*)] levOFLOXACIN [levAQUIN (*)] 500 mg PO DAILY 04/11/17 oxyCODONE IR [Oxycodone Ir (*)] 5 - 10 mg PO Q6H PRN 04/11/17 traZODone [traZODONE 50MG (*)] 50 mg PO HS PRN 04/11/17 oxyCODONE IR [Oxycodone Ir (*)] 5 - 10 mg PO Q4H PRN #10 tab 04/14/17 Guaifenesin 04/16/17 Diazepam [Valium 5 MG (*)] 5 mg PO TID PRN #9 tab 04/21/17 Laboratory Results: Laboratory Results 04/20/17 23:24 04/20/17 04/20/17 23:24 23:20 WBC 10.96 10^3/uL H 10^3/uL (3.80-9.50) RBC 3.83 10^6/uL L 10^6/uL (4.40-6.38) Hgb 12.0 g/dL L g/dL (13.7-17.5) POC Hgb 12.2 gm/dL L gm/dL (13.7-17.5) Hct 34.2 % L % (40.0-51.0) POC Hct 36 % L % (40-51) MCV 89.3 fL fL (81.5-99.8) MCH 31.3 pg pg (27.9-34.1) MCHC 35.1 g/dL g/dL (32.4-36.7) RDW 12.4 % % (11.5-15.2) Plt Count 522 10^3/uL H 10^3/uL (150-400) MPV 8.1 fL L fL (8.7-11.7) Neut % (Auto) 75.0 % H % (39.3-74.2) Lymph % (Auto) 12.6 % L % (15.0-45.0) [place] % (Auto) 10.3 % % (4.5-13.0) Eos % (Auto) 1.2 % % (0.6-7.6) Baso % (Auto) 0.5 % % (0.3-1.7) Nucleat RBC Rel Count 0.0 % % (0.0-0.2) Absolute Neuts (auto) 8.22 10^3/uL H 10^3/uL (1.70-6.50) Absolute Lymphs (auto) 1.38 10^3/uL 10^3/uL (1.00-3.00) Absolute Monos (auto) 1.13 10^3/uL H 10^3/uL (0.30-0.80) Absolute Eos (auto) 0.13 10^3/uL 10^3/uL (0.03-0.40) Absolute Basos (auto) 0.06 10^3/uL 10^3/uL (0.02-0.10) Absolute Nucleated RBC 0.00 10^3/uL 10^3/uL (0-0.01) Immature Gran % 0.4 % % (0.0-1.1) Immature Gran # 0.04 10^3/uL 10^3/uL (0.00-0.10) POC Sodium 140 mEq/L mEq/L (135-145) POC Potassium 3.5 mEq/L mEq/L (3.3-5.0) POC Chloride 101 mEq/L mEq/L (97-110) POC BUN 17 mg/dL mg/dL (7-23) POC Creatinine 0.6 mg/dL L mg/dL (0.7-1.3) POC Glucose 108 mg/dL H mg/dL (70-100) Medications Given: Discontinued Medications Diazepam (Valium) 5 mg IVP EDNOW ONE Stop: 04/20/17 23:42 Last Admin: 04/20/17 23:57 Dose: 5 mg Sodium Chloride (Ns) 1,000 mls @ 0 mls/hr IV EDNOW ONE; Wide Open PRN Reason: Protocol Stop: 04/20/17 23:08 Last Admin: 04/20/17 23:30 Dose: 1,000 mls Ketorolac Tromethamine (Toradol) 30 mg IVP EDNOW ONE Stop: 04/20/17 23:42 Last Admin: 04/20/17 23:55 Dose: 30 mg Point of Care Test Results: 04/20/17 23:20 POC Sodium 140 POC Potassium 3.5 POC Chloride 101 POC BUN 17 POC Creatinine 0.6 L POC Glucose 108 H Departure - Departure Disposition: Home, Routine, Self-Care Clinical Impression: TMJ (temporomandibular joint disorder) Condition: Good Instructions: Temporomandibular Disorder (ED) Additional Instructions: 1. Aleve 2 pills by mouth twice daily. Do not take in conjunction with any other inflammatories 2. Valium as prescribed as needed. Do not mix with alcohol or narcotics 3. Contact your dentist for referral to a TMJ specialist 4. Contact primary care physician for a referral to a TMJ specialist 5. ED precautions as discussed Referrals: MARIO HARRISON [Other] - As per Instructions Prescriptions: Diazepam [Valium 5 MG (*)] 5 mg PO TID PRN #9 tab PRN Reason: Spasms
[2017-04-21 00:36] VITALS: BP 129/84; PULSE 86; RESP 18
[2017-04-21] MEDS ORDERED: IOPAMIDOL (ISOVUE 370) 100 ML BTL IV ONE (01:34)
== END 2017-04-21 00:36 | disposition home or self-care (01) ==
DX: M26.609 Unspecified temporomandibular joint disorder, unspecified side (principal); I10 Essential (primary) hypertension; E86.9 Volume depletion, unspecified; Z87.891 Personal history of nicotine dependence
CPT/HCPCS: 82947-QW; 96374; J1885; J3360; Q9967

== ENCOUNTER → 2018-01-21 | Outpatient (CLI) | payer MEDICAID | LOC: FIMAGING 07:13 | PROVIDERS: ATTEND Family Medicine | DX: S42.254 Nondisplaced fracture of greater tuberosity of right humerus (principal); M75.111 Incomplete rotator cuff tear or rupture of right shoulder, not specified as traumatic ==

== ENCOUNTER 2018-02-22 12:04 | Emergency (ER) | payer MEDICAID ==
[2018-02-22] MEDS ORDERED: OXYCODONE/APAP 5/325 TAB PO ONE (12:59)
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
[2018-02-22 13:08] VITALS: BP 150/95
== END 2018-02-22 13:08 | disposition home or self-care (01) ==
DX: M25.511 Pain in right shoulder (principal); S42.254D Nondisplaced fracture of greater tuberosity of right humerus, subsequent encounter for fracture with routine healing; V00.831A Fall from motorized mobility scooter, initial encounter

== ENCOUNTER 2018-03-15 11:31 | Emergency (ER) | payer SELFPAY ==
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
[2018-03-15 14:18] VITALS: BP 128/84
== END 2018-03-15 14:15 | disposition home or self-care (01) ==
DX: S42.254A Nondisplaced fracture of greater tuberosity of right humerus, initial encounter for closed fracture (principal); F17.200 Nicotine dependence, unspecified, uncomplicated; V00.148A Other scooter (nonmotorized) accident, initial encounter; Y92.9 Unspecified place or not applicable; Y93.9 Activity, unspecified; Y99.9 Unspecified external cause status